=== PATIENT | female | born 1975 | race Caucasian/White ===

== ENCOUNTER 2022-03-22 13:36 | Emergency (ER) | payer OTHER, SELFPAY ==
[2022-03-22 13:53] VITALS: BP 93/64; PULSE 94; RESP 18; TEMP 36.4; O2SAT 97; BMI 44.2
--- NOTE | 2022-03-22 14:19 | CT_ITS ---
WS: [id number] CT ABDOMEN AND PELVIS WITH CONTRAST HISTORY: possible appendicitis TECHNIQUE: Imaging performed of the abdomen and pelvis with IV contrast. Single phase imaging of the abdomen. Coronal and sagittal reformats are submitted. All CT scans at [facility] use at [address] one of these dose optimization techniques: automated exposure control; mA and/or kV adjustment per patient size (includes targeted exams where dose is matched to clinical indication); or iterative re construction. IV CONTRAST: Omnipaque 300; 50 mL IV. Oral contrast: No DLP: 1839.81 mGy.cm COMPARISON: None available. Lower thorax: Lung bases are clear. Heart is normal size. No hiatal hernia. Liver/biliary system: Normal size with no intrahepatic dilatation. Gallbladder: Status post cholecystectomy. Pancreas: Normal size pancreas and pancreatic duct. No adjacent inflammation. Spleen: Normal size spleen. No mass or infarct. Adrenal glands: Normal. Right kidney: Normal. Left kidney: Normal. Aorta: Normal. Lymphadenopathy: None. Free fluid: None. GI tract: The appendix is not identified. No inflammatory changes in the RIGHT lower quadrant. There is no evidence for appendicitis. No GI tract obstruction. Abdominal wall: Unremarkable abdominal wall. No hernia. Pelvis: No free fluid or adenopathy. Small RIGHT ovarian cyst measures 3.0 x 3.0 cm. No free fluid in the pelvis. Uterus is anteverted. 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 Hypertrophic bone formation on the RIGHT. Encroachment into th e RIGHT lateral recess at L5-S1. CT/CT abdomen pelvis w con* [id number] IMPRESSION: 1. The appendix is not identified but there are no changes of appendicitis. 2. Small RIGHT ovarian cyst measures 3.0 x 3.0 cm. 3. No ascites or adenopathy. 4. Prior cholecystectomy.
[2022-03-22 14:40] LABS: Basophils # 0.1 10^3/uL (0.0-0.1); Basophils % 0.8 %; Eosinophils # 0.2 10^3/uL (0.0-0.8); Eosinophils % 1.9 %; Hemoglobin 15.1 g/dL (11.5-15.3); Lymphocytes # 3.6 10^3/uL (0.8-4.8); Lymphocytes % 34.1 %; Mean Corpuscular HGB Conc 34.3 g/dL (30.0-36.0); Mean Corpuscular Hemoglobin 29.1 pg (28.0-34.0); Mean Corpuscular Volume 84.8 fl (81-99); Mean Platelet Volume 9.3 fL (7.4-10.4); Monocytes # 0.5 10^3/uL (0.2-0.9); Monocytes % 4.8 %; Neutrophils # 6.05 10^3/uL (1.8-7.7); Neutrophils % 57.8 %; Nucleated Red Blood Cells % 0 %; Platelet Count 310 10^3/cmm (130-400); Red Blood Count 5.19 10^6/uL (4.1-5.3); Red Cell Distribution Width 13.1 % (12.1-15.1); White Blood Count 10.5 10^3/uL (4.0-10.0)
--- NOTE | 2022-03-22 14:40 | ED_ITS ---
HPI - General Adult General: Chief complaint: Abdominal Pain Stated complaint: Lower Ride Side, N/V Time Seen by Provider: 03/22/22 14:17 History of Present Illness: Patient is a 46-year-old female with history of bilateral tubal ligation, uterine ablation, prior cholecystectomy presenting to the emergency room with 2 days of dull right lower quadrant dull pain. Patient tells me pain started 2 days ago noticed constant worsening. Patient has intermittent sharp pain radiating from the umbilicus to the right lower quadrant. Patient reports nausea vomiting chills. Denies any fever, new vaginal discharge, urinary complaints at this time. Patient has a history of renal colic, denies any new vaginal discharge. No other complaints today including chest pain, shortness of palpitation, lightheadedness, cough, runny nose, sore throat. Onset: 2 days ago Duration:2 days Location:home Severity:moderate Associated symptoms: Reports nausea and vomiting; Deny chest pain, dyspnea, rash or palpitations Review of Systems Const: Denies: fever(s) or chills Eyes: Denies: change in vision ENMT: Denies: mouth pain Card: Denies: chest pain or palpitations Resp: Denies: dyspnea or non-productive cough GI: Reports: abdominal pain (+RLQ abd pain), nausea and vomiting; Denies: diarrhea : Denies: dysuria Musc: Denies: extremity pain Skin/Breast: Denies: rash or new lesions Neuro: Denies: weakness in extremities Psych: Reports: other (Normal mood) Tyler/Lymph: Denies: easy bruising PFS ED PFSH: Medical History No pertinent past medical history Social History Smoking and tobacco status: never smoked Alcohol intake: never Substance/Drug Use: never Physical Exam Const: COMMON NORMALS: alert HENMT: COMMON NORMALS: atraumatic HEAD & SCALP: atraumatic MOUTH: moist mucous membranes not abnormal Eye: COMMON NORMALS: EOMs intact bilaterally and conjunctivae normal CONJUNCTIVA: Yes conjunctivae normal Neck/C-Spine: COMMON NORMALS: full ROM and supple Resp: COMMON NORMALS: normal respiratory effort and clear to auscultation bilaterally AUSCULTATION: clear to auscultation bilaterally Cardio: COMMON NORMALS: regular rate RATE: regular rate GI: COMMON NORMALS: Soft to palpation PALPATION: Yes Soft to palpation OTHER: +moderate RLQ TTP. NO guarding rebound, guarding, rigidity. No CVA tenderness to percussion. Neg Lobo/Neg McBurney's point tenderness, no suprabupic tenderness to palpation. Extremity: COMMON NORMALS: full ROM Neuro: SENSORIUM/ORIENTATION: Yes alert MOTOR EXAM: No Abnormal motor strength present and Other motor observations present (no focal motor deficits) Psych: COMMON NORMALS: speech normal SPEECH: Yes normal speech MOOD & AFFECT: Yes euthymic mood Course Vital Signs: Vital signs: Vital Signs Temperature 97.6 F 03/22/22 13:53 Pulse Rate 76 03/22/22 16:00 Respiratory Rate 15 03/22/22 14:46 Blood Pressure 106/73 03/22/22 16:00 Pulse Oximetry 96 03/22/22 16:00 MDM - General Adult Medical Decision Making 46-year-old female history of bilateral tubal ligation, prior cholecystectomy, prior urine placement presenting to the emergency room for lower quadrant abdominal pain x2 days. On exam, she has moderate tenderness to palpation. No guarding or rebound tenderness. Vitals appears to be normal. White count 10.5 today. I offered pelvic exam, however patient declined citing no new pelvic discharge, no urinary symptoms this time and transvaginal US performed. UA negative for any acute finding. CT abdomen pelvis did not show any sign acute pathology including appendicitis. Transvaginal ultrasound intact and right ovarian flow. No suspicion for other acute intra-abdominal pathology including SBO, biliary pathology, appendicitis, diverticulitis, or other emergent condition requiring surgery. Incidental findings of R ovarian cyst discussed extensively with patient. Patient received a copy of the CT report with the documented findings. Patient is instructed to follow up urgently with specialists. No suspicion for other acute intra-abdominal pathology including SBO, biliary pathology, appendicitis, diverticulitis, or other emergent condition requiring surgery. She tolerated p.o. in the emergency room reports feeling symptoms improved with medication today. Rx tylenol PRN abd pain, maalox/pepcid PRN dyspepsia, and zofran PRN nausea/ vomiting Disposition: Discharge. Patient counseled regarding diagnostic impression, treatment plan. Patient given ED strict return precautions to return for continuation, worsening, or development of new symptoms. Instructed to f/u w/ PCP regarding symptoms today. Patient verbalized understanding. Considered appendicitis however unlikely at this time given lack of signs and sx's to suggest appendicitis as etiology. Pt counseled that appendicitis may later develop and given appendicitis precautions and instructed to return if any development of RLQ tenderness, worsening or continued abdominal pain, or any fevers, chills, nausea, vomiting, or any other concerning signs or symptoms. Lab Data : 03/22/22 14:30 03/22/22 14:30 Radiology Impressions Abdomen/Pelvis CT 03/22/22 14:19 IMPRESSION: 1. The appendix is not identified but there are no changes of appendicitis. 2. Small RIGHT ovarian cyst measures 3.0 x 3.0 cm. 3. No ascites or adenopathy. 4. Prior cholecystectomy. Transvaginal US 03/22/22 15:51 IMPRESSION: 1. Complex right ovarian cyst 2. The left ovary is not visible. 3. Tiny nonspecific endometrial fluid collection Laboratory Results WBC 10.5 10^3/uL (4.0-10.0) H 03/22/22 14:30 RBC 5.19 10^6/uL (4.1-5.3) 03/22/22 14:30 Hgb 15.1 g/dL (11.5-15.3) 03/22/22 14:30 Hct 44.0 % (37.0-47.0) 03/22/22 14:30 MCV 84.8 fl (81-99) 03/22/22 14:30 MCH 29.1 pg (28.0-34.0) 03/22/22 14:30 MCHC 34.3 g/dL (30.0-36.0) 03/22/22 14:30 RDW 13.1 % (12.1-15.1) 03/22/22 14:30 Plt Count 310 10^3/cmm (130-400) 03/22/22 14:30 MPV 9.3 fL (7.4-10.4) 03/22/22 14:30 Neut % (Auto) 57.8 % 03/22/22 14:30 Lymph % (Auto) 34.1 % 03/22/22 14:30 Burleigh % (Auto) 4.8 % 03/22/22 14:30 Eos % (Auto) 1.9 % 03/22/22 14:30 Baso % (Auto) 0.8 % 03/22/22 14:30 Neut # (Auto) 6.05 10^3/uL (1.8-7.7) 03/22/22 14:30 Lymph # (Auto) 3.6 10^3/uL (0.8-4.8) 03/22/22 14:30 Burleigh # (Auto) 0.5 10^3/uL (0.2-0.9) 03/22/22 14:30 Eos # (Auto) 0.2 10^3/uL (0.0-0.8) 03/22/22 14:30 Baso # (Auto) 0.1 10^3/uL (0.0-0.1) 03/22/22 14:30 Nucleated RBC % (auto) 0 % 03/22/22 14:30 Nucleated RBCs # 0.0 /100WBC 03/22/22 14:30 Sodium 138 mmol/L (136-145) 03/22/22 14:30 Potassium 3.5 mmol/L (3.5-5.1) 03/22/22 14:30 Chloride 99 mmol/L (98-107) 03/22/22 14:30 Carbon Dioxide 28 mmol/L (22-29) 03/22/22 14:30 Anion Gap 14.5 (5-19) 03/22/22 14:30 BUN 8 mg/dL (6-20) 03/22/22 14:30 Creatinine 1.0 mg/dL (0.5-0.9) H 03/22/22 14:30 GFR Calculation 60.0 mL/min (90-130) L 03/22/22 14:30 Glucose 92 mg/dL (65-115) 03/22/22 14:30 Calculated Osmolality 284 mOsm/kg (285-295) L 03/22/22 14:30 Calcium 9.6 mg/dL (8.5-10.5) 03/22/22 14:30 Total Bilirubin 0.3 mg/dL (0.15-1.2) 03/22/22 14:30 AST 15 U/L (0-32) 03/22/22 14:30 ALT 13 U/L (0-33) 03/22/22 14:30 Alkaline Phosphatase 128 IU/L (35-105) H 03/22/22 14:30 Total Protein 7.9 g/dL (6.6-8.7) 03/22/22 14:30 Albumin 4.5 g/dL (3.5-5.2) 03/22/22 14:30 Globulin 3.4 g/dL (1.3-4.6) 03/22/22 14:30 Lipase 13 U/L (13-60) 03/22/22 14:30 Urine Color Krys (Yellow) 03/22/22 14:35 Urine Appearance Clear (CLEAR) 03/22/22 14:35 Urine pH 5 (5-7) 03/22/22 14:35 Ur Specific Manley 1.025 (1.005-1.030) 03/22/22 14:35 Urine Protein Trace (Negative) 03/22/22 14:35 Urine Glucose (UA) Norm (Normal) 03/22/22 14:35 Urine Ketones 1+ (Negative) H 03/22/22 14:35 Urine Blood Neg (Negative) 03/22/22 14:35 Urine Nitrate Negative (Negative) 03/22/22 14:35 Urine Bilirubin 1+ (Negative) H 03/22/22 14:35 Urine Urobilinogen 1 mg/dL (Negative) H 03/22/22 14:35 Ur Leukocyte Esterase Trace (Negative) H 03/22/22 14:35 Urine RBC 0-4 /hpf (0-2) H 03/22/22 14:35 Urine WBC 0-4 /hpf (0-5) H 03/22/22 14:35 Ur Squamous Epith Cells 0-4 /hpf (0-5) H 03/22/22 14:35 Calcium Oxalate Crystal 0-4 /hpf H 03/22/22 14:35 Amorphous Sediment Not Reportable 03/22/22 14:35 Urine Bacteria 2+ /hpf (NONE) H 03/22/22 14:35 Urine HCG, Qual Negative (Negative) 03/22/22 14:35 Imaging Data Other Imaging: Radiologist's impression: [address] [address] Ultrasound Report Signed Patient: HusseinBrenda Unit #: [id number] : 1975 Age/Sex: 46 / F ADM Date: 03/22/22 Loc: ER Room/Bed: Attending Dr: Ordering Provider/Ordering MD: Félix Masters MD Date of Service: 03/22/22 Procedure(s): US transvaginal [id number] Accession Number(s): [id number] Report Number: [id number] PROCEDURE INFORMATION: Exam: US Pelvis, Transvaginal Exam date and time: 03/22/2022 4:05 PM Age: 46 years old Clinical indication: Abdominal pain; Right lower quadrant; Prior surgery; Surgery date: 6+ months; Surgery type: Lt ovary lanced ; Additional info: Rlq abd pain TECHNIQUE: Imaging protocol: Real-time transvaginal pelvic ultrasound with image documentation. Transvaginal imaging was used for better evaluation of the endometrium, adnexa, and/or cervix. COMPARISON: CT abdomen pelvis w con* [id number] 03/22/2022 3:40 PM FINDINGS: Uterus: Uterus is normal. Endometrial stripe shows a small fluid collection 5.9 mm x 2.4 mm x 4.3 mm.? This finding has thin jackson and no internal structures.? Nonspecific finding. Right ovary/adnexa:? Complex septated cyst 3 cm x 2.8 cm x 3 cm.? No mass. Normal ovarian blood flow.? Right ovary measures 4.4 cm x 3.5 cm x 3.5 cm Left ovary/adnexa:? Is not visualized. Intraperitoneal space: No free fluid. US/US transvaginal [id number] IMPRESSION: 1. Complex right ovarian cyst 2. The left ovary is not visible. 3. Tiny nonspecific endometrial fluid collection ? Dictated By: Wilfrido Ramirez Signed By: Wilfrido Ramirez Signed Date/Time: 03/22/22 1705 DD/ [address] [address] [address] Scan Report Signed Patient: Brenda Savage Unit #: [id number] : 1975 Age/Sex: 46 / F ADM Date: 03/22/22 Loc: ER Room/Bed: Attending Dr: Ordering Provider/Ordering MD: Félix Masters MD Date of Service: 03/22/22 Procedure(s): CT abdomen pelvis w con* [id number] Accession Number(s): [id number] Report Number: [id number] WS: [id number] CT ABDOMEN AND PELVIS WITH CONTRAST HISTORY: possible appendicitis TECHNIQUE: Imaging performed of the abdomen and pelvis with IV contrast.? Single phase imaging of the abdomen. Coronal and sagittal reformats are submitted.? [facility] CT scans at [facility] use at least one of these dose optimization techniques: automated exposure control; mA and/or kV adjustment per patient size (includes targeted exams where dose is matched to clinical indication); or iterative reconstruction. IV CONTRAST: Omnipaque 300; 50 mL IV. Oral contrast: No DLP: 1839.81 mGy.cm COMPARISON: None available. Lower thorax: Lung bases are clear. Heart is normal size. No hiatal hernia. Liver/biliary system: Normal size with no intrahepatic dilatation. Gallbladder: Status post cholecystectomy.? Pancreas: Normal size pancreas and pancreatic duct. No adjacent inflammation. Spleen: Normal size spleen. No mass or infarct. Adrenal glands: Normal. Right kidney: Normal. Left kidney: Normal. Aorta: Normal. Lymphadenopathy: None. Free fluid: None. GI tract: The appendix is not identified. No inflammatory changes in the RIGHT lower quadrant. There is no evidence for appendicitis. No GI tract obstruction. Abdominal wall: Unremarkable abdominal wall. No hernia. Pelvis: No free fluid or adenopathy. Small RIGHT ovarian cyst measures 3.0 x 3.0 cm. No free fluid in the pelvis. Uterus is anteverted. 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 Hypertrophic bone formation on the RIGHT. Encroachment into the RIGHT lateral recess at L5-S1. CT/CT abdomen pelvis w con* [id number] IMPRESSION: ? 1.? The appendix is not identified but there are no changes of appendicitis. 2.? Small RIGHT ovarian cyst measures 3.0 x 3.0 cm. 3.? No ascites or adenopathy. 4.? Prior cholecystectomy. ? Dictated By: Raquel Oviedo DO Signed By: Raquel Oviedo DO Signed Date/Time: 03/22/221557 DD/ 47 Discharge Plan Discharge Patient Disposition: Home Clinical Impression: Abdominal pain, Nausea Condition: Stable Prescriptions: New acetaminophen 500 mg tablet 500 mg PO Q6H PRN (Reason: pain) 5 Days Qty: 20 0RF Pepcid 20 mg tablet 20 mg PO BID PRN (Reason: abdominal pain) 10 Days Qty: 20 0RF ondansetron 4 mg tablet,disintegrating 4 mg PO TID PRN (Reason: nausea and vomiting) 4 Days Qty: 12 0RF Maalox Advanced 1,000-60 mg tablet,chewable 1 tab PO TID PRN (Reason: abdominal pain) 7 Days Qty: 21 0RF No Action metformin 500 mg Tablet 500 mg PO BID 0RF trazodone 50 mg Tablet 50 mg PO BEDTIME 0RF phentermine 37.5 mg Tablet 37.5 mg PO DAILY 0RF Rx Instructions: must administer 30 minutes before or 1-2 hours after breakfast hydrocodone-acetaminophen 7.5-325 mg Tablet 1 tab PO Q8H PRN (Reason: Pain) 0RF buspirone 10 mg Tablet 10 mg PO BID 0RF Ambien 10 mg Tablet 10 mg PO BEDTIME 0RF Paxil 40 mg Tablet 40 mg PO DAILY 0RF Discharge Orders: Discharge ED (Routine); Ordered 03/22/22 Ordered By: Félix Masters Discharge Diet: Advance as tolerated Discharge Activity: Increase activity as tolerated Patient Instructions: Abdominal Pain (ED) Activity Restrictions/Additional Instructions: Please come back if you have any worsening abdominal pain, fever or chills, nausea or vomiting, diarrhea, blood in the stool, inability hold down liquid or solids, or any new concerning complaints. Please return if you develop continued nausea, vomiting, or develop fevers, chills, abdominal pain, abdominal pain that is in the lower right side of your abdomen, or any other concerning signs or symptoms. Here's a copy of your CT report: [address] [address] Ultrasound Report Signed Patient: Brenda Savage Unit #: [id number] : 1975 Age/Sex: 46 / F ADM Date: 03/22/22 Loc: ER Room/Bed: Attending Dr: Ordering Provider/Ordering MD: Félix Masters MD Date of Service: 03/22/22 Procedure(s): US transvaginal [id number] Accession Number(s): [id number] Report Number: [id number] PROCEDURE INFORMATION: Exam: US Pelvis, Transvaginal Exam date and time: 03/22/2022 4:05 PM Age: 46 years old Clinical indication: Abdominal pain; Right lower quadrant; Prior surgery; Surgery date: 6+ months; Surgery type: Lt ovary lanced ; Additional info: Rlq abd pain TECHNIQUE: Imaging protocol: Real-time transvaginal pelvic ultrasound with image documentation. Transvaginal imaging was used for better evaluation of the endometrium, adnexa, and/or cervix. COMPARISON: CT abdomen pelvis w con* [id number] 03/22/2022 3:40 PM FINDINGS: Uterus: Uterus is normal. Endometrial stripe shows a small fluid collection 5.9 mm x 2.4 mm x 4.3 mm.? This finding has thin jackson and no internal structures.? Nonspecific finding. Right ovary/adnexa:? Complex septated cyst 3 cm x 2.8 cm x 3 cm.? No mass. Normal ovarian blood flow.? Right ovary measures 4.4 cm x 3.5 cm x 3.5 cm Left ovary/adnexa:? Is not visualized. Intraperitoneal space: No free fluid. US/US transvaginal [id number] IMPRESSION: 1. Complex right ovarian cyst 2. The left ovary is not visible. 3. Tiny nonspecific endometrial fluid collection ? Dictated By: Wilfrido Ramirez Signed By: Wilfrido Ramirez Signed Date/Time: 03/22/22 1705 DD/ 1605 Stand Alone Forms: Work/School Release Coding Level of Care Code ED [employer] Technician for Chg Fwd Exam Comprehensive
[2022-03-22] MEDS: famotidine 20 mg/2 mL INJ IVP (14:45)
[2022-03-22 14:46] VITALS: RESP 15; O2SAT 100
[2022-03-22] MEDS: ondansetron 2 mg/ML SDV 2 mL 4 MG IVP (14:46)
[2022-03-22] MEDS: morphine 4 mg/mL SDV 1 mL IVP ×2 (14:46→16:18)
[2022-03-22] MEDS: sodium chloride 0.9% 1,000 ML 999 ML IV (14:46)
[2022-03-22 14:56] VITALS: BP 113/69; PULSE 76; O2SAT 97
[2022-03-22 14:57] LABS: Alanine Aminotransferase 13 U/L (0-33); Albumin Level 4.5 g/dL (3.5-5.2); Alkaline Phosphatase 128 IU/L (35-105); Anion Gap 14.5 (5-19); Aspartate Amino Transferase 15 U/L (0-32); Blood Urea Nitrogen 8 mg/dL (6-20); Calcium 9.6 mg/dL (8.5-10.5); Carbon Dioxide 28 mmol/L (22-29); Chloride 99 mmol/L (98-107); Globulin 3.4 g/dL (1.3-4.6); Glucose 92 mg/dL (65-115); Lipase 13 U/L (13-60); Osmolality Calculated 284 mOsm/kg (285-295); Potassium 3.5 mmol/L (3.5-5.1); Sodium 138 mmol/L (136-145); Total Bilirubin 0.3 mg/dL (0.15-1.2); Total Protein 7.9 g/dL (6.6-8.7)
[2022-03-22 15:00] VITALS: BP 104/71; PULSE 72; O2SAT 99
[2022-03-22 15:07] LABS: Bilirubin Urine 1+ (Negative); Blood Urine Neg (Negative); Glucose Urine UA Norm (Normal); Ketones Urine 1+ (Negative); Nitrate Urine Negative (Negative); Protein Urine Trace (Negative); Specific Gravity, Urine 1.025 (1.005-1.030); Urine Appearance Clear (CLEAR); Urine Color Amber (Yellow); pH Urine 5 (5-7)
[2022-03-22 15:08] LABS: Add Urine Microscopic? YES; Bacteria Urine 2+ /hpf; Leukocyte Esterase Urine Trace (Negative); RBC Urine 0-4 /hpf (0-2); Squamous Epithelial Cell Urine 0-4 /hpf (0-5); Urobilinogen Urine 1 mg/dL (Negative); WBC Urine 0-4 /hpf (0-5)
[2022-03-22 15:09] LABS: Add Urine Culture? Yes; Calcium Oxalate Crystals Urine 0-4 /hpf
[2022-03-22 15:30] VITALS: BP 122/68; PULSE 71; O2SAT 96
[2022-03-22] MEDS: iohexol 300 mg/mL 100 mL Btl IV (15:40)
--- NOTE | 2022-03-22 15:51 | USR_ITS ---
PROCEDURE INFORMATION: Exam: US Pelvis, Transvaginal Exam date and time: 03/22/2022 4:05 PM Age: 46 years old Clinical indication: Abdominal pain; Right lower quadrant; Prior surgery; Surgery date: 6+ months; Surgery type: Lt ovary lanced ; Additional info: Rlq abd pain TECHNIQUE: Imaging protocol: Real-time transvaginal pelvic ultrasound with image documentation. Transvaginal imaging was used for better evaluation of the endometrium, adnexa, and/or cervix. COMPARISON: CT abdomen pelvis w con* [id number] 03/22/2022 3:40 PM FINDINGS: Uterus: Uterus is normal. Endometrial stripe shows a small fluid collection 5.9 mm x 2.4 mm x 4.3 mm. This finding has thin jackson and no internal structures. Nonspecific finding. Right ovary/adnexa: Complex septated cyst 3 cm x 2.8 cm x 3 cm. No mass. Normal ovarian blood flow. Right ovary measures 4.4 cm x 3.5 cm x 3.5 cm Left ovary/adnexa: Is not visualized. Intraperitoneal space: No free fluid. US/US transvaginal [id number] IMPRESSION: 1. Complex right ovarian cyst 2. The left ovary is not visible. 3. Tiny nonspecific endometrial fluid collection
[2022-03-22 16:00] VITALS: BP 106/73; PULSE 76; O2SAT 96
== END 2022-03-22 18:30 | disposition home or self-care (01) ==
PROVIDERS: Emergency Provider Emergency Medicine
DX: R10.9 Unspecified abdominal pain (principal); R11.0 Nausea
CPT/HCPCS: 74177; 76830; 80053; 81001; 81025; 83690; 85025; 87086; 96361; 96374; 96375; 96376; 99284; J2270; J2405; J3490; J7030; Q9967